=== PATIENT | male | born 1965 | race African-American/Black ===

== ENCOUNTER 2017-03-30 15:45 | Emergency (ER) | payer MEDICAID ==
[~2017-03-30] VITALS: Ht 175.3 cm; Wt 68.5 kg
[2017-03-30 16:29] VITALS: Ht 175.3 cm; Wt 68.5 kg
[2017-03-30 20:06] VITALS: BP 131/81
== END 2017-03-30 20:06 | disposition home or self-care (01) ==
LOC: ED 15:45
DX: F41.9 Anxiety disorder, unspecified (principal); J45.909 Unspecified asthma, uncomplicated